=== PATIENT | male | born 1965 | race Caucasian/White ===

== ENCOUNTER → 2017-03-15 | Outpatient (CLI) | payer OTHER ==
--- NOTE | 2017-03-15 14:40 | DIAGNOSTIC IMAGING REPORT ---
L ELBOW MIN 3 VIEWS ROUTINE CLINICAL HISTORY: 51 years-old Male presenting with INJURY OF LEFT ELBOW. TECHNIQUE: Frontal, oblique, and lateral views of the left elbow were obtained. COMPARISON: 04/14/2010. FINDINGS: No elbow joint effusion. No acute fracture or malalignment. No advanced degenerative change. No radiographic soft tissue abnormality. IMPRESSION: No acute osseous injury of the left elbow. Electronically signed by: Grupo Amaro M.D. 03/15/2017 2:38 PM Dictated Date/Time: 03/15/2017 2:36 PM
== END | disposition home or self-care (01) ==
LOC: C.RAD 14:00
PROVIDERS: ATTEND Nurse Practitioner Family
DX: S59.902A Unspecified injury of left elbow, initial encounter (principal); X58.XXXA Exposure to other specified factors, initial encounter